=== PATIENT | male | born 1960 | race Caucasian/White ===

== ENCOUNTER 2019-06-27 07:16 | Day surgery (SDC) | payer OTHER ==
[2019-06-27] MEDS ORDERED: ONDANSETRON HCL INJ/PF 4 MG/2 ML SDV ONE (07:49)
[2019-06-27] MEDS ORDERED: DIPHENHYDRAMINE HCL 50 MG/ML VIAL ONE (07:49)
[2019-06-27] MEDS ORDERED: EPINEPHRINE INJ 1 MG/10 ML DISP.SYRIN ONE (07:50)
[2019-06-27] MEDS ORDERED: FLUMAZENIL INJ 0.5 MG/5 ML VIAL ONE (07:50)
[2019-06-27] MEDS ORDERED: MIDAZOLAM 2 MG/2 ML INJ ONE (07:50)
[2019-06-27] MEDS ORDERED: NALOXONE HCL INJ/PF 0.4 MG/1 ML SDV ONE (07:50)
[2019-06-27] MEDS ORDERED: FENTANYL CITRATE INJ/PF 100 MCG/2 ML AMPUL ONE (07:50)
[2019-06-27] MEDS ORDERED: GLUCAGON,HUMAN RECOMB 1 MG INJ ONE (07:50)
[2019-06-27 09:05] VITALS: BP 148/76
--- NOTE | 2019-06-27 09:09 | Operative Report ---
Nonrecallable Operative Report DATE OF SURGERY: 06/27/19 PREOPERATIVE DIAGNOSIS: Screening colonoscopy POSTOPERATIVE DIAGNOSIS: Screening colonoscopy OPERATION: Screening colonoscopy SURGEON: LESLEY VERMA ANESTHESIA: Other - No sedation was used TISSUE REMOVED OR ALTERED: None COMPLICATIONS: None ESTIMATED BLOOD LOSS: 0 INTRAOPERATIVE FINDINGS: Normal colonoscopy PROCEDURE: Patient was brought to the endoscopy suite awake alert stable condition placed on the endoscopy table in a left lateral decubitus position. After appropriate timeout site verification the procedure commenced. No sedation was utilized for the procedure. The Olympus colonoscope was passed into the rectum easily traversed the sigmoid colon descending colon up to splenic, hepatic flexure flexure transverse colon ascending colon and then down to the cecum. The ileocecal valve was visualized. The scope was then slowly removed and examination of all mucosal surfaces ascending colon hepatic flexure transverse colon splenic flexure and descending colon were visualized no evidence of any mucosal abnormalities or polyps were noted. As we traversed through the sigmoid colon there is no evidence of diverticulosis. Scope was then slowly withdrawn through the rectum. Impression normal colonoscopy. Next colonoscopy due in 10 years.
--- NOTE | 2019-06-27 09:10 | Discharge Summary ---
Discharge Summary (SDC) - Discharge Final Diagnosis: Greening colonoscopy Date of Surgery: 06/27/19 Discharge Date: 06/27/19 - 5 seven-point Condition: Good Forms: EU Anesthesia D/C Instructions, Discharge POC-Surgical Service Referrals: LESLEY VERMA MD [ACTIVE STAFF] - 07/11/19 1:00 pm Discharge Diet: As Tolerated - Patient does not need to follow-up in clinic. Respiratory Treatments at Home: Deep Breathing/Coughing Discharge Activity: Activity As Tolerated Home Care Assistance: None Needed Report the Following to Your Physician Immediately: Shortness of Breath, Nausea, Vomiting, Increase in Pain, Fever over 101 Degrees, Unusual Bleeding, IV Site Infection Signs
== END 2019-06-27 09:35 | disposition home or self-care (01) ==
LOC: END 07:16
PROVIDERS: ATTEND Surgery
DX: Z12.11 Encounter for screening for malignant neoplasm of colon (principal); Z79.899 Other long term (current) drug therapy; I10 Essential (primary) hypertension
CPT/HCPCS: 45378; 45380; J0171; J1200; J1610; J2250; J2310; J2405; J3010; J3490